=== PATIENT | male | born 1970 | race Two or more races ===

== ENCOUNTER 2018-02-16 12:01 | Emergency (ER) | payer MEDICAID ==
[~2018-02-16] VITALS: Ht 172.7 cm; Wt 69.0 kg
[2018-02-16 14:55] LABS: HEMATOCRIT. 36.7 % (42.0-52.0); HEMOGLOBIN. 12.4 g/dL (14.0-18.0); MEAN CORPUSCULAR HEMOGLOBIN 34.5 pg (28.0-32.0); MEAN CORPUSCULAR VOLUME 101.7 fL (80.0-94.0); MEAN PLATELET VOLUME 9.1 fl (7.4-10.4); PLATELET 75 x1000/uL (130-400); RED CELL DISTRIBUTION WIDTH 17.9 % (11.6-14.6)
[2018-02-16 15:02] LABS: CHLORIDE 105 mEq/L (98-107)
[2018-02-16 16:28] LABS: PLATELET ESTIMATE DECREASED
[2018-02-16] MEDS ORDERED: IOHEXOL-350 100 ML BOTTLE ONE (17:04)
[2018-02-16 17:38] VITALS: BP 121/72
== END 2018-02-16 17:49 | disposition home or self-care (01) ==
LOC: ER 12:01
DX: R00.2 Palpitations (principal); R07.89 Other chest pain; F17.200 Nicotine dependence, unspecified, uncomplicated
CPT/HCPCS: 36415; 71045; 71275; 80053; 83880; 84443; 84484; 85025; 85379; 93005; 99285; Q9967

== ENCOUNTER 2020-07-03 10:52 | Emergency (ER) | payer MEDICAID ==
[~2020-07-03] VITALS: Ht 170.2 cm; Wt 73.0 kg
[2020-07-03] MEDS ORDERED: BACITRACIN ZINC OINT UDPKT TOP ONE (12:00)
[2020-07-03] MEDS ORDERED: AMOXICILLIN/POTASSIUM CLAVULANATE 875/125MG TAB PO ONE (12:00)
[2020-07-03] MEDS ORDERED: ACETAMINOPHEN 325MG TABLET PO ONE (12:00)
[2020-07-03] MEDS ORDERED: TETANUS, DIPHTHERIA, PERTUSSIS VAC/PF 0.5ML (>7YR OLD) IM ONE (12:00)
[2020-07-03] MEDS ORDERED: AMOX-424 MT (12:45)
[2020-07-03 14:11] VITALS: BP 146/85
== END 2020-07-03 14:12 | disposition home or self-care (01) ==
LOC: ER 10:57
DX: S61.211A Laceration without foreign body of left index finger without damage to nail, initial encounter (principal); L03.012 Cellulitis of left finger; Y08.89XA Assault by other specified means, initial encounter; Y93.89 Activity, other specified; Y92.89 Other specified places as the place of occurrence of the external cause
CPT/HCPCS: 90471; 90715; 99284; Z7610

== ENCOUNTER 2020-12-18 09:38 | Inpatient (IN) | payer MEDICAID ==
[~2020-12-18] VITALS: Ht 167.6 cm; Wt 58.1 kg
[~2020-12-18 09:38] MED LIST: AMOX-424 MT
[2020-12-18] MEDS ORDERED: MORPHINE SULFATE 4 MG/ML CPJ (NOT FOR IM USE) IV ONE (10:15)
[2020-12-18 10:31] LABS: CHLORIDE 105 mEq/L (98-107)
[2020-12-18 10:33] LABS: HEMOGLOBIN. 12.1 g/dL (14.0-18.0); MEAN CORPUSCULAR HEMOGLOBIN 31.4 pg (28.0-32.0); MEAN CORPUSCULAR VOLUME 93.2 fL (80.0-94.0); PLATELET 89 x1000/uL (130-400); RED BLOOD CELL COUNT 3.86 mill/uL (4.7-6.1); RED CELL DISTRIBUTION WIDTH 16.6 % (11.6-14.6)
[2020-12-18] MEDS ORDERED: LORAZEPAM 2MG/ML CPJ IV ONE (11:15)
[2020-12-18 11:38] LABS: PLATELET ESTIMATE DECREASED
[2020-12-18] MEDS ORDERED: ASPIRIN 81MG TABLET PO ONE (11:45)
[2020-12-18] MEDS ORDERED: IPRATROPIUM/ALBUTEROL 0.5-3(2.5)MG/3ML NEB NEB PRN (14:30)
[2020-12-18] MEDS ORDERED: MAGNESIUM/ALUMINUM HYDROXIDE/SIMETHICONE 30ML UDC PO PRN (14:30)
[2020-12-18] MEDS ORDERED: ONDANSETRON HCL 4MG/2ML INJ IV PRN (14:30)
[2020-12-18] MEDS ORDERED: CLONIDINE 0.1MG TABLET PO PRN (14:30)
[2020-12-18] MEDS ORDERED: NITROGLYCERIN 0.4MG TABLET SL SL PRN (14:30)
[2020-12-18] MEDS ORDERED: DOCUSATE SODIUM 100MG CAPSULE PO PRN (14:30)
[2020-12-18] MEDS ORDERED: ACETAMINOPHEN 325MG TABLET PO PRN ×2 (14:30)
[2020-12-18] MEDS ORDERED: KETOROLAC 15MG/ML VIAL IV PRN (14:30)
[2020-12-18] MEDS ORDERED: GUAIFENESIN 200MG/10ML SUGAR FREE UDC PO PRN (14:30)
[2020-12-18] MEDS ORDERED: LORAZEPAM 0.5MG TABLET PO PRN (14:30)
[2020-12-18] MEDS ORDERED: ENOXAPARIN 40MG/0.4ML SYR SUBCUT SCH (15:00)
[2020-12-18 15:25] LABS: FOLIC ACID (FOLATE) SERUM 16.1 ng/mL (>5.38)
[2020-12-18 18:02] LABS: *AMPHETAMINES SCREEN URINE PRESUMTIVE POSITIVE (NEGATIVE); *BARBITURATES SCREEN URINE NEGATIVE (NEGATIVE); *BENZODIAZEPINES SCREEN URINE NEGATIVE (NEGATIVE); *COCAINE SCREEN URINE NEGATIVE (NEGATIVE)
[2020-12-18 18:03] LABS: CANNABINOID URINE SCREEN NEGATIVE (NEGATIVE); METHADONE URINE SCREEN NEGATIVE (NEGATIVE); OPIATES URINE SCREEN PRESUMTIVE POSITIVE (NEGATIVE); PHENCYCLIDINE URINE SCREEN NEGATIVE (NEGATIVE)
[2020-12-18] MEDS ORDERED: ZOLPIDEM TARTRATE 5MG TABLET PO PRN (21:00)
[2020-12-18] MEDS: FAMOTIDINE 20MG TABLET PO SCH (22:13)
[2020-12-19 00:41] LABS: CREATINE KINASE 155 IU/L (39-308)
[2020-12-19 00:42] LABS: CREATINE KINASE MB FRACTION < 1.0 ng/mL (0.5-3.6)
[2020-12-19 03:30] VITALS: BP 124/91
[2020-12-19 04:00] VITALS: BP 124/91
[2020-12-19] MEDS ORDERED: BICT1TAB PO (05:13)
[2020-12-19] MEDS ORDERED: SULF1TAB48 MT (05:16)
[2020-12-19] MEDS ORDERED: FLUC200T MT (05:16)
[2020-12-19 06:41] LABS: HEMATOCRIT. 37.1 % (42.0-52.0); HEMOGLOBIN. 12.4 g/dL (14.0-18.0); MEAN CORPUSCULAR HEMOGLOBIN 31.5 pg (28.0-32.0); MEAN CORPUSCULAR VOLUME 94.4 fL (80.0-94.0); MEAN PLATELET VOLUME 8.5 fl (7.4-10.4); PLATELET 67 x1000/uL (130-400); RED BLOOD CELL COUNT 3.93 mill/uL (4.7-6.1); RED CELL DISTRIBUTION WIDTH 16.8 % (11.6-14.6)
[2020-12-19 07:07] LABS: CHLORIDE 106 mEq/L (98-107)
[2020-12-19 07:14] LABS: PHOSPHORUS 3.2 mg/dL (2.5-4.9)
[2020-12-19 07:16] LABS: CREATINE KINASE 130 IU/L (39-308)
[2020-12-19 07:19] LABS: CREATINE KINASE MB FRACTION < 1.0 ng/mL (0.5-3.6)
[2020-12-19 08:00] VITALS: BP 119/80
[2020-12-19] MEDS: FAMOTIDINE 20MG TABLET PO SCH (08:09)
[2020-12-19] MEDS ORDERED: ASPIRIN 325MG EC TABLET PO SCH (09:00)
[2020-12-19 11:04] VITALS: BP 119/80
[2020-12-19 16:24] LABS: PLATELET ESTIMATE DECREASED
== END 2020-12-19 11:30 | disposition home or self-care (01) | DRG 198 ==
LOC: ER 09:49 → MICUSO 10:34 → 8WST 12-19 02:03 → 7EST 12-19 02:12
PROVIDERS: ADMIT Internal Medicine; ATTEND Internal Medicine
DX: I20.1 Angina pectoris with documented spasm (principal); D61.818 Other pancytopenia; E44.1 Mild protein-calorie malnutrition; I10 Essential (primary) hypertension; R07.89 Other chest pain; R91.8 Other nonspecific abnormal finding of lung field; F15.10 Other stimulant abuse, uncomplicated; Z20.822 Contact with and (suspected) exposure to COVID-19; Z85.118 Personal history of other malignant neoplasm of bronchus and lung; Z92.3 Personal history of irradiation; Z71.51 Drug abuse counseling and surveillance of drug abuser; Z68.20 Body mass index [BMI] 20.0-20.9, adult
CPT/HCPCS: 36415; 71045; 71275; 80053; 80061; 80305; 82550; 82553; 82607; 82746; 83036; 83540; 83550; 83735; 83880; 84100; 84484; 85025; 87426; 93005; 93970; 99285; J1650; J2060; J2270

== ENCOUNTER 2021-06-03 03:42 | Inpatient (IN) | payer MEDICAID ==
[~2021-06-03] VITALS: Ht 167.6 cm; Wt 60.3 kg
[~2021-06-03 03:42] MED LIST changes: +BICT1TAB PO; +FLUC200T MT; +SULF1TAB48 MT
[2021-06-03] MEDS ORDERED: MORPHINE SULFATE 4 MG/ML CPJ (NOT FOR IM USE) IV STA (04:16)
[2021-06-03] MEDS ORDERED: ONDANSETRON HCL 4MG/2ML INJ IV STA (04:16)
[2021-06-03] MEDS ORDERED: SODIUM CHLORIDE 0.9% 1,000 ML IV ONE (04:30)
[2021-06-03 04:53] LABS: HEMATOCRIT. 35.9 % (42.0-52.0); HEMOGLOBIN. 11.8 g/dL (14.0-18.0); MEAN CORPUSCULAR HEMOGLOBIN 30.2 pg (28.0-32.0); MEAN PLATELET VOLUME 8.1 fl (7.4-10.4); PLATELET 79 x1000/uL (130-400); RED CELL DISTRIBUTION WIDTH 15.5 % (11.6-14.6)
[2021-06-03 05:07] LABS: CHLORIDE 106 mEq/L (98-107)
[2021-06-03] MEDS ORDERED: HYDROCODONE/ACETAMINOPHEN 5/325MG TABLET PO PRN (07:30)
[2021-06-03] MEDS ORDERED: MORPHINE SULFATE 2 MG/ML CPJ (NOT FOR IM USE) IV PRN (07:30)
[2021-06-03] MEDS ORDERED: ONDANSETRON HCL 4MG/2ML INJ IV PRN (07:30)
[2021-06-03] MEDS ORDERED: ENOXAPARIN 40MG/0.4ML SYR SUBCUT SCH (07:30)
[2021-06-03] MEDS ORDERED: ACETAMINOPHEN 325MG TABLET PO PRN (07:30)
[2021-06-03] MEDS ORDERED: DOCUSATE SODIUM 100MG CAPSULE PO PRN (07:30)
[2021-06-03] MEDS ORDERED: CLONIDINE 0.1MG TABLET PO PRN (07:30)
[2021-06-03 07:38] LABS: PLATELET ESTIMATE DECREASED
[2021-06-03] MEDS ORDERED: NALOXONE HCL 0.4MG/ML VIAL IV PRN (07:45)
[2021-06-03] MEDS: ASPIRIN 81MG EC TABLET PO SCH (09:17)
[2021-06-03 13:40] VITALS: BP 132/85
[2021-06-03] MEDS ORDERED: POTASSIUM CHLORIDE 20MEQ TABLET SR PO NR (15:30)
[2021-06-03 16:00] VITALS: BP 125/69
[2021-06-03 20:00] VITALS: BP 121/76
[2021-06-03] MEDS: AMLODIPINE 2.5MG TABLET PO SCH (20:06)
[2021-06-03] MEDS ORDERED: IOHEXOL-350 100 ML BOTTLE ONE (21:56)
[2021-06-04] VITALS: BP 114/68
[2021-06-04 03:44] VITALS: BP 116/74
[2021-06-04 07:25] LABS: HEMATOCRIT. 36.2 % (42.0-52.0); HEMOGLOBIN. 12.2 g/dL (14.0-18.0); MEAN CORPUSCULAR HEMOGLOBIN 30.9 pg (28.0-32.0); MEAN CORPUSCULAR VOLUME 91.6 fL (80.0-94.0); MEAN PLATELET VOLUME 8.7 fl (7.4-10.4); PLATELET 70 x1000/uL (130-400); RED BLOOD CELL COUNT 3.95 mill/uL (4.7-6.1); RED CELL DISTRIBUTION WIDTH 15.4 % (11.6-14.6)
[2021-06-04 07:36] LABS: CHLORIDE 104 mEq/L (98-107)
[2021-06-04 07:45] LABS: HDL CHOLESTEROL 54 mg/dL (40-59); LDL CHOLESTEROL 72 mg/dL (5-100)
[2021-06-04] MEDS: AMLODIPINE 2.5MG TABLET PO SCH (08:14)
[2021-06-04] MEDS: ASPIRIN 81MG EC TABLET PO SCH (08:14)
[2021-06-04 08:59] VITALS: BP 134/76
[2021-06-04 09:39] LABS: PLATELET ESTIMATE DECREASED
[2021-06-04 11:16] VITALS: BP 104/67
[2021-06-04 13:05] VITALS: BP 104/67
[2021-06-05] MEDS ORDERED: AMLODIPINE 2.5MG TABLET PO SCH (09:00)
== END 2021-06-04 15:20 | disposition home or self-care (01) | DRG 203 ==
LOC: ER 04:44 → 5WST 05:39 → ENRESERV 12:47
PROVIDERS: ADMIT Hospitalist; ATTEND Hospitalist
DX: M94.0 Chondrocostal junction syndrome [Tietze] (principal); D61.818 Other pancytopenia; E44.1 Mild protein-calorie malnutrition; C34.90 Malignant neoplasm of unspecified part of unspecified bronchus or lung; E87.6 Hypokalemia; I34.0 Nonrheumatic mitral (valve) insufficiency; Z20.822 Contact with and (suspected) exposure to COVID-19; D70.3 Neutropenia due to infection; G40.909 Epilepsy, unspecified, not intractable, without status epilepticus; I10 Essential (primary) hypertension; Z79.82 Long term (current) use of aspirin; Z79.899 Other long term (current) drug therapy; Z82.49 Family history of ischemic heart disease and other diseases of the circulatory system; Z68.21 Body mass index [BMI] 21.0-21.9, adult
CPT/HCPCS: 36415; 71045; 71275; 80053; 80061; 83880; 84484; 85025; 85379; 87426; 93005; 93306; 93970; 99291; J2270; J2405; J7030; Q9967

== ENCOUNTER 2021-09-17 13:17 | Emergency (ER) | payer MEDICAID ==
[~2021-09-17] VITALS: Ht 170.2 cm; Wt 68.0 kg
[2021-09-17] MEDS ORDERED: ONDANSETRON HCL 4MG/2ML INJ IV STA ×2 (13:35→19:07)
[2021-09-17] MEDS ORDERED: MORPHINE SULFATE 4 MG/ML CPJ (NOT FOR IM USE) IV STA ×2 (13:35→19:07)
[2021-09-17] MEDS ORDERED: SODIUM CHLORIDE 0.9% 1,000 ML IV ONE (13:45)
[2021-09-17 14:20] LABS: HEMATOCRIT. 39.5 % (42.0-52.0); HEMOGLOBIN. 13.1 g/dL (14.0-18.0); MEAN CORPUSCULAR HEMOGLOBIN 30.5 pg (28.0-32.0); MEAN CORPUSCULAR VOLUME 92.1 fL (80.0-94.0); MEAN PLATELET VOLUME 8.4 fl (7.4-10.4); PLATELET 89 x1000/uL (130-400); RED BLOOD CELL COUNT 4.29 mill/uL (4.7-6.1); RED CELL DISTRIBUTION WIDTH 18.5 % (11.6-14.6)
[2021-09-17 14:38] LABS: ETHANOL BLOOD 93 mg/dL
[2021-09-17 15:06] LABS: CHLORIDE 117 mEq/L (98-107)
[2021-09-17 16:26] LABS: PLATELET ESTIMATE DECREASED
[2021-09-17] MEDS ORDERED: POTASSIUM CHLORIDE 20MEQ TABLET SR PO ONE (20:15)
[2021-09-17] MEDS ORDERED: HYDR-4001 MT (20:38)
[2021-09-17 21:10] VITALS: BP 133/87
== END 2021-09-17 22:33 | disposition home or self-care (01) ==
LOC: ER 13:17 → CANBEDREQ 09-18 02:00
DX: R07.89 Other chest pain (principal); M79.601 Pain in right arm; R94.31 Abnormal electrocardiogram [ECG] [EKG]; C34.90 Malignant neoplasm of unspecified part of unspecified bronchus or lung; I10 Essential (primary) hypertension; F12.90 Cannabis use, unspecified, uncomplicated
CPT/HCPCS: 36415; 71045; 80053; 80320; 83690; 83880; 84484; 85025; 93005; 96361; 96374; 96375; 99285; J2270; J2405; J7030; G0480